=== PATIENT | female | born 1995 | race Caucasian/White ===

== ENCOUNTER 2019-10-06 14:23 | Emergency (ER) | payer MEDICAID ==
[~2019-10-06] VITALS: Ht 170.2 cm; Wt 71.0 kg
[2019-10-06 14:44] VITALS: BP 134/69
[2019-10-06 17:45] LABS: BASOPHILS % 0.5 % (0.0-2.0); EOSINOPHILS % 0.5 % (0.0-5.0); HEMATOCRIT. 39.7 % (36.0-48.0); HEMOGLOBIN. 13.2 g/dL (12.0-16.0); LYMPHOCYTES % 24.8 % (20.0-50.0); MEAN CORPUSCULAR HEMOGLOBIN 26.9 pg (28.0-32.0); MEAN CORPUSCULAR VOLUME 80.7 fL (81.0-99.0); MEAN PLATELET VOLUME 9.9 fl (7.4-10.4); MONOCYTES % 4.5 % (2.0-8.0); NEUTROPHILS % 69.7 % (40.0-76.0); PLATELET 257 x1000/uL (130-400); RED BLOOD CELL COUNT 4.92 mill/uL (4.2-5.4); RED CELL DISTRIBUTION WIDTH 15.6 % (11.6-14.6)
[2019-10-06 17:52] LABS: CHLORIDE 106 mEq/L (98-107)
[2019-10-06 17:53] LABS: CLARITY URINE CLEAR (CLEAR); COLOR URINE YELLOW (YELLOW); KETONES URINE NEGATIVE (NEGATIVE); LEUKOCYTE ESTERASE URINE TRACE (NEGATIVE); NITRITE URINE NEGATIVE (NEGATIVE); OCCULT BLOOD URINE 3+ (NEGATIVE); PH URINE 8.5 (4.5-8.0); PROTEIN URINE NEGATIVE (NEGATIVE); SPECIFIC GRAVITY URINE 1.012 (1.005-1.030)
[2019-10-06 18:03] LABS: B-HCG QUANTITATIVE 102 mIU/mL (<3)
== END 2019-10-06 19:30 | disposition home or self-care (01) ==
LOC: ER 14:23
DX: O03.9 Complete or unspecified spontaneous abortion without complication (principal)
CPT/HCPCS: 36415; 76801; 80053; 81003; 81025; 84702; 85025; 86850; 86900; 99284

== ENCOUNTER 2020-09-29 16:04 | Observation (INO) | payer MEDICAID ==
[~2020-09-29] VITALS: Ht 170.2 cm; Wt 81.2 kg
[2020-09-29] MEDS ORDERED: LACTATED RINGERS 1,000 ML IV SCH (17:15)
[2020-09-29 17:25] LABS: CLARITY URINE CLOUDY (CLEAR); COLOR URINE YELLOW (YELLOW); KETONES URINE NEGATIVE (NEGATIVE); LEUKOCYTE ESTERASE URINE 2+ (NEGATIVE); NITRITE URINE NEGATIVE (NEGATIVE); OCCULT BLOOD URINE 1+ (NEGATIVE); PH URINE 7.5 (4.5-8.0); PROTEIN URINE TRACE (NEGATIVE); SPECIFIC GRAVITY URINE 1.019 (1.005-1.030)
[2020-09-29] MEDS ORDERED: ACETAMINOPHEN 325MG TABLET PO PRN (18:15)
[2020-09-29] MEDS ORDERED: CEFAZOLIN 2,000 MG in DEXT 5% WATER 100 ML IV SCH (18:30)
[2020-09-30] MEDS ORDERED: PREN1TAB78 PO (19:14)
== END 2020-09-29 19:15 | disposition home or self-care (01) ==
LOC: 8 EST LDRP 16:04
PROVIDERS: ADMIT Obstetrics & Gynecology; ATTEND Obstetrics & Gynecology
DX: O99.891 Other specified diseases and conditions complicating pregnancy (principal); M54.9 Dorsalgia, unspecified; O26.893 Other specified pregnancy related conditions, third trimester; R10.30 Lower abdominal pain, unspecified; Z3A.39 39 weeks gestation of pregnancy
CPT/HCPCS: 59025; 81003; 96361; 96365; G0378; J0690; J7060; 96360; 99281; J7120; G0379

== ENCOUNTER 2020-09-30 18:49 | Inpatient (IN) | payer MEDICAID ==
[~2020-09-30] VITALS: Ht 170.2 cm; Wt 80.7 kg
[2020-09-30] MEDS ORDERED: PREN1TAB78 PO (19:14)
[2020-09-30] MEDS ORDERED: NALOXONE HCL 0.4 MG/ML 1ML VIAL IM PRN (19:30)
[2020-09-30] MEDS ORDERED: BUTORPHANOL TARTRATE 2 MG/ML VIAL IV PRN (19:30)
[2020-09-30] MEDS ORDERED: MISOPROSTOL 100MCG TABLET VG SCH (19:30)
[2020-09-30] MEDS ORDERED: METHYLERGONOVINE MALEATE 0.2 MG/ML IM PRN (19:30)
[2020-09-30] MEDS ORDERED: CARBOPROST TROMETHAMINE 250 MCG/ML AMPUL IM PRN (19:30)
[2020-09-30] MEDS ORDERED: LACTATED RINGERS 1,000 ML IV SCH (19:30)
[2020-09-30] MEDS ORDERED: AMPICILLIN 2GM in NS 100ML 100 ML IV NR (19:30)
[2020-09-30] MEDS ORDERED: LIDOCAINE HCL 1% 20ML VIAL (Pyxis) INJ INFIL SCH (19:30)
[2020-09-30] MEDS ORDERED: DEXT 5%/LR + PITOCIN 20UNITS/L 1,000 ML IV SCH (19:30)
[2020-09-30 21:10] LABS: BASOPHILS % 0.5 % (0.0-2.0); EOSINOPHILS % 0.1 % (0.0-5.0); HEMATOCRIT. 39.2 % (36.0-48.0); HEMOGLOBIN. 13.1 g/dL (12.0-16.0); LYMPHOCYTES % 13.6 % (20.0-50.0); MEAN CORPUSCULAR HEMOGLOBIN 26.9 pg (28.0-32.0); MEAN CORPUSCULAR VOLUME 80.5 fL (81.0-99.0); MEAN PLATELET VOLUME 10.8 fl (7.4-10.4); MONOCYTES % 4.6 % (2.0-8.0); NEUTROPHILS % 81.2 % (40.0-76.0); PLATELET 203 x1000/uL (130-400); RED BLOOD CELL COUNT 4.87 mill/uL (4.2-5.4)
[2020-09-30 21:10] LABS: CLARITY URINE CLEAR (CLEAR); COLOR URINE YELLOW (YELLOW); KETONES URINE 2+ (NEGATIVE); LEUKOCYTE ESTERASE URINE 1+ (NEGATIVE); NITRITE URINE NEGATIVE (NEGATIVE); OCCULT BLOOD URINE 1+ (NEGATIVE); PH URINE 8.5 (4.5-8.0); PROTEIN URINE NEGATIVE (NEGATIVE); SPECIFIC GRAVITY URINE 1.011 (1.005-1.030)
[2020-09-30 21:14] LABS: INR 0.9; PARTIAL THROMBOPLASTIN TIME 26.7 sec (23.4-31.0); PROTHROMBIN TIME 9.8 sec (9.6-11.0)
[2020-09-30 21:44] LABS: HEPATITIS B SURFACE ANTIGEN NEGATIVE
[2020-09-30 21:56] LABS: *AMPHETAMINES SCREEN URINE NEGATIVE (NEGATIVE); *BARBITURATES SCREEN URINE NEGATIVE (NEGATIVE); *BENZODIAZEPINES SCREEN URINE NEGATIVE (NEGATIVE); *COCAINE SCREEN URINE NEGATIVE (NEGATIVE)
[2020-09-30 21:57] LABS: CANNABINOID URINE SCREEN NEGATIVE (NEGATIVE); METHADONE URINE SCREEN NEGATIVE (NEGATIVE); OPIATES URINE SCREEN NEGATIVE (NEGATIVE); PHENCYCLIDINE URINE SCREEN NEGATIVE (NEGATIVE)
[2020-09-30] MEDS ORDERED: ROPIVACAINE HCL/PF EPIDURAL 200 ML EPI NR (22:15)
[2020-10-01] MEDS ORDERED: OXYTOCIN 10 UNITS/ML 1ML ONE ×2 (00:15→00:16)
[2020-10-01] MEDS ORDERED: CEFAZOLIN SODIUM 1000MG/VIAL ONE (00:15)
[2020-10-01] MEDS ORDERED: MORPHINE SULFATE/PF 1MG/ML 10ML AMP ONE (00:19)
[2020-10-01] MEDS ORDERED: EPHEDRINE SULFATE 50MG/ML VIAL ONE ×2 (00:33→00:50)
[2020-10-01] MEDS ORDERED: FENTANYL CITRATE/PF 50MCG/ML 2ML VIAL ONE (00:47)
[2020-10-01] MEDS ORDERED: ONDANSETRON HCL 4MG/2ML INJ ONE (00:50)
[2020-10-01] MEDS ORDERED: KETOROLAC 60MG/2ML VIAL IM ONE (00:50)
[2020-10-01] MEDS ORDERED: DEXAMETHASONE 4MG/ML 1ML VIAL ONE (00:50)
[2020-10-01] MEDS ORDERED: KETOROLAC 30MG/ML VIAL IV PRN (01:15)
[2020-10-01] MEDS ORDERED: DEXT 5%/LR + PITOCIN 20UNITS/L 1,000 ML IV SCH (01:15)
[2020-10-01] MEDS ORDERED: BISACODYL 10MG SUPP PR PRN (01:15)
[2020-10-01] MEDS ORDERED: RHO(D) IMMUNE GLOBULIN 300 MCG/SYR IM PRN (01:15)
[2020-10-01] MEDS ORDERED: IBUPROFEN 400MG TABLET PO PRN (01:15)
[2020-10-01] MEDS ORDERED: HYDROCODONE/ACETAMINOPHEN 5/325MG TABLET PO PRN (01:15)
[2020-10-01] MEDS ORDERED: ONDANSETRON HCL 4MG/2ML INJ IV ONE (01:30)
[2020-10-01] MEDS ORDERED: DIPHENHYDRAMINE 50MG/ML VIAL IM PRN (01:30)
[2020-10-01] MEDS ORDERED: NALOXONE HCL 0.4 MG/ML 1ML VIAL IV PRN (01:30)
[2020-10-01] MEDS ORDERED: HYDROMORPHONE HCL/PF 2MG/ML CPJ IV PRN (01:30)
[2020-10-01] MEDS ORDERED: AMPICILLIN 1,000 MG in SODIUM CHLORIDE 0.9% 50 ML IV SCH (02:00)
[2020-10-01 03:00] VITALS: BP 110/60
[2020-10-01] MEDS ORDERED: DEXT 5%/LR + PITOCIN 20UNITS/L 1,000 ML IV ONE (03:58)
[2020-10-01 06:04] LABS: HEMATOCRIT. 32.9 % (36.0-48.0); HEMOGLOBIN. 10.8 g/dL (12.0-16.0); MEAN CORPUSCULAR HEMOGLOBIN 26.6 pg (28.0-32.0); MEAN CORPUSCULAR VOLUME 81.3 fL (81.0-99.0); MEAN PLATELET VOLUME 10.4 fl (7.4-10.4); PLATELET 186 x1000/uL (130-400); RED BLOOD CELL COUNT 4.05 mill/uL (4.2-5.4); RED CELL DISTRIBUTION WIDTH 14.9 % (11.6-14.6)
[2020-10-01 07:25] VITALS: BP 112/52
[2020-10-01] MEDS ORDERED: TETANUS, DIPHTHERIA, PERTUSSIS VAC/PF 0.5ML (>7YR OLD) IM ONE (08:00)
[2020-10-01] MEDS: PRENATAL VIT/FE FUMARATE/FA TABLET PO SCH (10:43)
[2020-10-01 12:10] VITALS: BP 112/52
[2020-10-01 16:15] VITALS: BP 112/62
[2020-10-01 20:00] VITALS: BP 108/69
[2020-10-01] MEDS: IBUPROFEN 800MG TABLET PO PRN (21:36)
[2020-10-02 03:15] VITALS: BP 111/69
[2020-10-02 08:00] VITALS: BP 101/64
[2020-10-02] MEDS: FERROUS SULFATE 325MG TABLET PO SCH ×2 (09:55→17:30)
[2020-10-02] MEDS: PRENATAL VIT/FE FUMARATE/FA TABLET PO SCH (09:55)
[2020-10-02 10:49] LABS: BASOPHILS % 0.2 % (0.0-2.0); EOSINOPHILS % 0.3 % (0.0-5.0); HEMATOCRIT. 33.7 % (36.0-48.0); HEMOGLOBIN. 11.3 g/dL (12.0-16.0); LYMPHOCYTES % 11.8 % (20.0-50.0); MEAN CORPUSCULAR VOLUME 80.4 fL (81.0-99.0); MEAN PLATELET VOLUME 9.9 fl (7.4-10.4); NEUTROPHILS % 83.7 % (40.0-76.0); PLATELET 213 x1000/uL (130-400); RED CELL DISTRIBUTION WIDTH 14.9 % (11.6-14.6)
[2020-10-02 16:00] VITALS: BP 106/67
[2020-10-02 20:00] VITALS: BP 120/77
[2020-10-02 20:31] LABS: PLATELET ESTIMATE NORMAL
[2020-10-02] MEDS: IBUPROFEN 800MG TABLET PO PRN (21:53)
[2020-10-03 04:00] VITALS: BP 104/58
[2020-10-03] MEDS: IBUPROFEN 800MG TABLET PO PRN ×2 (04:47→16:10)
[2020-10-03 08:00] VITALS: BP 106/67
[2020-10-03] MEDS: FERROUS SULFATE 325MG TABLET PO SCH (10:08)
[2020-10-03] MEDS: PRENATAL VIT/FE FUMARATE/FA TABLET PO SCH (10:08)
[2020-10-03 16:00] VITALS: BP 107/67
[2020-10-03 19:25] VITALS: BP 120/73
[2020-10-04 04:15] VITALS: BP 110/70
[2020-10-04 06:41] LABS: BASOPHILS % 0.2 % (0.0-2.0); EOSINOPHILS % 1.4 % (0.0-5.0); HEMATOCRIT. 33.5 % (36.0-48.0); HEMOGLOBIN. 10.9 g/dL (12.0-16.0); LYMPHOCYTES % 17.1 % (20.0-50.0); MEAN CORPUSCULAR VOLUME 82.7 fL (81.0-99.0); MONOCYTES % 3.9 % (2.0-8.0); NEUTROPHILS % 77.4 % (40.0-76.0); PLATELET 220 x1000/uL (130-400); RED BLOOD CELL COUNT 4.06 mill/uL (4.2-5.4); RED CELL DISTRIBUTION WIDTH 14.8 % (11.6-14.6)
[2020-10-04] MEDS ORDERED: IBUP-2030 PO (06:42)
[2020-10-04] MEDS ORDERED: FERR325T23 PO (06:42)
== END 2020-10-04 10:40 | disposition home or self-care (01) | DRG 540 ==
LOC: 8 EST LDRP 18:49 → OBSVTOIN 18:49 → 8EST 10-01 03:00
PROVIDERS: ADMIT Obstetrics & Gynecology; ATTEND Obstetrics & Gynecology
PROC: 10D00Z1 Extraction of Products of Conception, Low, Open Approach (ICD-10-PCS; principal; 2020-10-01)
DX: O76 Abnormality in fetal heart rate and rhythm complicating labor and delivery (principal); O99.03 Anemia complicating the puerperium; Z20.822 Contact with and (suspected) exposure to COVID-19; Z37.0 Single live birth; Z3A.40 40 weeks gestation of pregnancy
CPT/HCPCS: 36415; 76815; 80305; 81003; 85025; 86592; 86703; 86762; 86850; 86900; 87340; 87426; 88307; 90715; 99281; G0378; J0290; J0690; J1100; J1885; J2274; J2405; J2590; J2795; J3010; J3490; A4315